=== PATIENT | female | born 1985 | race Asian ===

== ENCOUNTER 2017-04-27 13:14 | Inpatient (IN) | payer OTHER ==
[~2017-04-27] VITALS: Ht 152.4 cm; Wt 65.0 kg
[2017-04-27] VITALS (22 sets, daily range): BP systolic 96–123; BP diastolic 48–70; PULSE 60–88; RESP 10–27
[2017-04-27] MEDS ORDERED: SOD CHLORIDE 0.9% 1,000 ML IV ONE (14:00)
[2017-04-27] MEDS ORDERED: CEFAZOLIN 2 GM/50 ML (PMX) 50 ML IVPB ONE (14:00)
[2017-04-27] MEDS ORDERED: BUPIVACAINE 0.25% (MPF) 30 ML INJ ONE (16:54)
[2017-04-27] MEDS ORDERED: MIDAZOLAM 1 MG/ML 2 ML INJ ONE (17:00)
[2017-04-27] MEDS ORDERED: PROPOFOL 20 ML ONE (18:11)
[2017-04-27] MEDS ORDERED: GLYCOPYRROLATE 0.4 MG INJ ONE (18:11)
[2017-04-27] MEDS ORDERED: NEOSTIGMINE 3 MG/3 ML SYRINGE ONE (18:11)
[2017-04-27] MEDS ORDERED: LIDOCAINE 2% (SDV) 5 ML INJ ONE (18:11)
[2017-04-27] MEDS ORDERED: ROCURONIUM 50 MG INJ ONE (18:11)
[2017-04-27] MEDS ORDERED: ONDANSETRON 4 MG INJ ONE (18:12)
[2017-04-27] MEDS ORDERED: CEFAZOLIN 1 GM INJ ONE (18:13)
--- NOTE | 2017-04-27 18:17 | OPR ---
Date/Time of Note Date/Time of Note DATE: 04/27/17 TIME: 18:14 Operative Report Procedure Date: Apr 27, 2017 Preoperative Diagnosis symptomatic gallstones Postoperative Diagnosis same Operation Performed 1. laparoscopic cholecystectomy 2. therapeutic injection of subcutaneous marcaine Surgeon: Matilda NICHOLS Indications This is a 31-year-old female with subsided gallstones she required surgical excision. Risks alternatives benefits in personal discussed the patient. Patient's best understanding consents to the operation Procedure Description Patient is taken to the OR and prepped and draped in usual sterile fashion. Surgical timeout was performed. IV antibiotics given. Infraumbilical incision was made with a 15 blade. Dissection cautery was carried onto the fascia. The fascia was grasped with Eden's and divided with curved Romero scissors 0 Vicryl U stitch was placed to the fascia. Balloon Guerrero trocar is introduced pneumoperitoneum is established. Midepigastric 12 mm optical trocar right upper quadrant right flank 5 mm optical trocar placed under direct visualization. Upon initial inspection there are some adhesions to the gallbladder. These were taken down bluntly. The critical view was established. The gallbladder was held out in a outward lateral position. The cystic duct was identified 3 clips were placed proximally 1 clip distal and the cystic duct is divided the cystic artery was divided in a similar fashion. The cystic artery was divided with 3 clips proximal 1 clip distal. Gallbladder signal of the gallbladder bed there is good hemostasis. Gallbladder was retrieved using an Endo Catch bag. Ports removed under direct visualization. 0 Vicryl U stitch was tied down. Skin was closed using skin melquiades. Therapeutic injection of subcutaneous Marcaine was placed. Dry dressings were applied. Matilda NICHOLS Apr 27, 2017 18:17
[2017-04-27] MEDS: ONDANSETRON 4 MG INJ IV PRN ×2 (18:29→20:03)
[2017-04-27] MEDS ORDERED: MEPERIDINE 25 MG INJ IV PRN (18:30)
[2017-04-27] MEDS ORDERED: morphine (1 MG/ML) 10ML SYRINGE IV PRN (18:30)
[2017-04-27] MEDS ORDERED: HYDROCODONE/APAP (5/325) TAB PO ONE (18:30)
[2017-04-27] MEDS ORDERED: DIPHENHYDRAMINE 50 MG INJ IV PRN (18:30)
[2017-04-27] MEDS: FENTAnyl 50 MCG/ML VIAL IV PRN ×3 (18:42→19:41)
[2017-04-27] MEDS ORDERED: HYDROCODONE/APAP (5/325) TAB PO PRN (21:00)
[2017-04-27] MEDS: morphine 2 MG INJ IV PRN (22:49)
[2017-04-28 00:14] VITALS: BP 109/57; RESP 18
[2017-04-28] MEDS: morphine 2 MG INJ IV PRN ×2 (06:17→11:15)
[2017-04-28] MEDS: ONDANSETRON 4 MG INJ IV PRN ×2 (06:21→11:15)
[2017-04-28 08:00] VITALS: BP 109/64; RESP 18
--- NOTE | 2017-04-28 11:02 | CONS ---
Date/Time of Note Date/Time of Note DATE: 04/28/17 TIME: 11:01 Assessment/Plan Assessment/Plan Chief Complaint/Hosp Course Patient was admitted for continued pain after laparoscopic cholecystectomy. Patient continues to have a fair amount of pain. Will continue to monitor her postoperative course Problems: Consultation Date/Type/Reason Admit Date/Time Apr 27, 2017 at 20:55 Date of Consultation: Apr 28, 2017 Reason for Consultation Medical management after laparoscopic cholecystectomy Social History Smoking Status: Never smoker Exam/Review of Systems Vital Signs Vitals Vital Signs Date Time Temp Pulse Resp B/P Pulse Ox O2 Delivery O2 Flow Rate FiO2 04/28/17 08:00 98.5 64 18 109/64 97 04/27/17 20:35 Room Air 04/27/17 18:50 2.0 Intake and Output 04/27/17 04/27/17 04/28/17 15:00 23:00 07:00 Intake Total 1200 ml 560 ml Balance 1200 ml 560 ml Exam Constitutional: well developed Head: atraumatic, normocephalic Neck: supple Respiratory: clear to auscultation Cardiovascular: regular rate and rhythm Gastrointestinal: soft, tender Extremities: normal pulses Medications Medications Current Medications Acetaminophen/ Hydrocodone Bitart ([place] (5/325)) 1 tab Q4H PRN PO PAIN LEVEL 4 -6 Last administered on 04/28/17 02:03; Admin Dose 1 TAB; Start 04/27/17 at 21: 00 Morphine Sulfate (morphine) 2 mg Q4H PRN IV PAIN Last administered on 06:17; Admin Dose 2 MG; Start 04/27/17 at 22:30 Ondansetron HCl (Zofran Inj) 4 mg Q6H PRN IV NAUSEA AND/OR VOMITING Last administered on 04/28/17 06:21; Admin Dose 4 MG; Start 04/27/17 at 22:30 BARBARA SUH Apr 28, 2017 11:02
--- NOTE | 2017-04-28 14:25 | PN ---
Date/Time of Note Date/Time of Note DATE: 04/28/17 TIME: 14:16 Assessment/Plan VTE Prophylaxis VTE Prophylaxis Intervention: ambulation Lines/Catheters IV Catheter Type (from Nrs): Saline Lock Urinary Cath still in place: No Assessment/Plan Assessment/Plan 31-year-old female status post laparoscopic cholecystectomy postop day #1. Patient has been complaining of severe pain apparantly the pain is not under control. No patient is receiving morphine and [place]. We will start the patient on Toradol to control the pain. We will keep the patient overnight hopefully by tomorrow we can discharge the patient home. Subjective 24 Hr Interval Summary Free Text/Dictation April 28, 2017. Dr. Sims dictating progress note follow-up on the patient to edna Duncan. . Complaining of severe pain in the right upper quadrant at site of incision. This is supposedly so much that the patient hardly can move in the bed. Some nausea no vomiting no chills no fever no fainting. Exam/Review of Systems Vital Signs Vitals Vital Signs Date Time Temp Pulse Resp B/P Pulse Ox O2 Delivery O2 Flow Rate FiO2 04/28/17 08:00 98.5 64 18 109/64 97 04/27/17 20:35 Room Air 04/27/17 18:50 2.0 Intake and Output 04/27/17 04/27/17 04/28/17 15:00 23:00 07:00 Intake Total 1200 ml 560 ml Balance 1200 ml 560 ml Exam Postop day #1 laparoscopic cholecystectomy. . Patient is alert awake oriented 3. Her son is a stable blood pressure 110/ 64. Abdomen is soft there is mild tenderness over the right upper quadrant. Patient has been receiving morphine injection for control of the pain. But states that the pain is not controlled. Score of the pain is 8/10. Legs no calf tenderness. Medications Medications Current Medications Acetaminophen/ Hydrocodone Bitart ([place] (5/325)) 1 tab Q4H PRN PO PAIN LEVEL 4 -6 Last administered on 04/28/17 02:03; Admin Dose 1 TAB; Start 04/27/17 at 21: 00 Morphine Sulfate (morphine) 2 mg Q4H PRN IV PAIN Last administered on 11:15; Admin Dose 2 MG; Start 04/27/17 at 22:30 Ondansetron HCl (Zofran Inj) 4 mg Q6H PRN IV NAUSEA AND/OR VOMITING Last administered on 04/28/17t 11:15; Admin Dose 4 MG; Start 04/27/17 at 22:30 Ketorolac Tromethamine (Toradol) 30 mg Q6H IV ; Start 04/28/17 at 14:00; Stop at 13:59 LUKASZ SIMS MD Apr 28, 2017 14:25
[2017-04-28 14:43] LABS: BASOPHILS % 0.2 % (0.0-2.0); EOSINOPHILS # 0.1 10^3/ul (0.0-0.5); EOSINOPHILS % 1.1 % (0.0-7.0); HEMATOCRIT 35.2 % (37.0-47.0); HEMOGLOBIN 10.8 g/dl (12.0-16.0); LYMPHOCYTES # 1.7 10^3/ul (0.8-2.9); LYMPHOCYTES % 21.3 % (15.0-51.0); MEAN CORPUSCULAR HEMOGLOBIN 25.4 pg (29.0-33.0); MEAN CORPUSCULAR HGB CONC 30.7 g/dl (32.0-37.0); MEAN CORPUSCULAR VOLUME 82.6 fl (82.0-101.0); MONOCYTE # 0.7 10^3/ul (0.3-0.9); MONOCYTES % 8.9 % (0.0-11.0); NEUTROPHIL # 5.5 10^3/ul (1.6-7.5); NEUTROPHILS % 68.3 % (39.0-77.0); PLATELET COUNT 318 10^3/UL (140-415); RED BLOOD COUNT 4.26 10^6/ul (4.20-5.40); RED CELL DISTRIBUTION WIDTH 14.6 % (11.5-14.5); WHITE BLOOD COUNT 8.1 10^3/ul (4.8-10.8)
[2017-04-28] MEDS: KETOROLAC 30 MG INJ IV SCH ×2 (14:45→20:15)
[2017-04-28 15:21] LABS: ALBUMIN 3.8 g/dl (3.3-4.9); ALBUMIN/GLOBULIN RATIO 1.26; BILIRUBIN,INDIRECT 0.2 mg/dl (0-1.1); BILIRUBIN,TOTAL 0.2 mg/dl (0.2-1.3); CALCIUM 8.4 mg/dl (8.4-10.2); CREATININE 0.62 mg/dl (0.44-1.00); POTASSIUM 3.9 mmol/L (3.5-5.1); TOTAL PROTEIN 6.8 g/dl (6.1-8.1)
[2017-04-28 19:10] VITALS: BP 108/57; RESP 18
[2017-04-29 02:00] VITALS: BP 111/55; RESP 18
[2017-04-29] MEDS: KETOROLAC 30 MG INJ IV SCH ×3 (02:05→14:32)
[2017-04-29 04:57] LABS: BASOPHILS % 0.3 % (0.0-2.0); EOSINOPHILS # 0.2 10^3/ul (0.0-0.5); EOSINOPHILS % 2.5 % (0.0-7.0); HEMATOCRIT 32.6 % (37.0-47.0); HEMOGLOBIN 10.4 g/dl (12.0-16.0); LYMPHOCYTES % 27.2 % (15.0-51.0); MEAN CORPUSCULAR HEMOGLOBIN 26.3 pg (29.0-33.0); MEAN CORPUSCULAR HGB CONC 31.9 g/dl (32.0-37.0); MEAN CORPUSCULAR VOLUME 82.5 fl (82.0-101.0); MEAN PLATELET VOLUME 9.9 fl (7.4-10.4); MONOCYTE # 0.7 10^3/ul (0.3-0.9); MONOCYTES % 8.9 % (0.0-11.0); NEUTROPHIL # 4.4 10^3/ul (1.6-7.5); PLATELET COUNT 283 10^3/UL (140-415); RED BLOOD COUNT 3.95 10^6/ul (4.20-5.40); RED CELL DISTRIBUTION WIDTH 14.5 % (11.5-14.5); WHITE BLOOD COUNT 7.3 10^3/ul (4.8-10.8)
[2017-04-29 05:22] LABS: CALCIUM 8.2 mg/dl (8.4-10.2); CREATININE 0.66 mg/dl (0.44-1.00); POTASSIUM 3.8 mmol/L (3.5-5.1)
[2017-04-29 08:07] VITALS: BP 113/55; RESP 18
--- NOTE | 2017-04-29 12:10 | DS ---
Date/Time of Note Date/Time of Note DATE: 04/29/17 TIME: 12:08 Discharge Summary Admission/Discharge Info Admit Date/Time Apr 28, 2017 at 11:34 Discharge Date/Time 04/29/17 Patient Condition: Fair Procedures laparoscopic cholecystectomy Hx of Present Illness Patient comes in with cholelithiasis. Patient admitted for elective laparoscopic cholecystectomy Hospital Course Patient was admitted for continued pain after laparoscopic cholecystectomy. Patient continues to have a fair amount of pain. Will continue to monitor her postoperative course. Once stable, patient will be sent home on oral pain medication Home Meds No Active Prescriptions or Reported Meds Primary Care Provider Not On Staff Doctor Pending Labs Laboratory Tests Test 04/28/17 14:12 04/29/17 04:30 White Blood Count 8.110^3/ul (4.8-10.8) 7.310^3/ul (4.8-10.8) Red Blood Count 4.2610^6/ul (4.20-5.40) 3.9510^6/ul (4.20-5.40) Hemoglobin 10.8g/dl (12.0-16.0) 10.4g/dl (12.0-16.0) Hematocrit 35.2% (37.0-47.0) 32.6% (37.0-47.0) Mean Corpuscular Volume 82.6fl (82.0-101.0) 82.5fl (82.0-101.0) Mean Corpuscular Hemoglobin 25.4pg (29.0-33.0) 26.3pg (29.0-33.0) Mean Corpuscular Hemoglobin Concent 30.7g/dl (32.0-37.0) 31.9g/dl (32.0-37.0) Red Cell Distribution Width 14.6% (11.5-14.5) 14.5% (11.5-14.5) Platelet Count 08039^3/UL (140-415) 26703^3/UL (140-415) Mean Platelet Volume 10.0fl (7.4-10.4) 9.9fl (7.4-10.4) Neutrophils % 68.3% (39.0-77.0) 61.0% (39.0-77.0) Lymphocytes % 21.3% (15.0-51.0) 27.2% (15.0-51.0) Monocytes % 8.9% (0.0-11.0) 8.9% (0.0-11.0) Eosinophils % 1.1% (0.0-7.0) 2.5% (0.0-7.0) Basophils % 0.2% (0.0-2.0) 0.3% (0.0-2.0) Nucleated Red Blood Cells % 0.0/100WBC (0.0-0.0) 0.0/100WBC (0.0-0.0) Neutrophils # 5.510^3/ul (1.6-7.5) 4.410^3/ul (1.6-7.5) Lymphocytes # 1.710^3/ul (0.8-2.9) 2.010^3/ul (0.8-2.9) Monocytes # 0.710^3/ul (0.3-0.9) 0.710^3/ul (0.3-0.9) Eosinophils # 0.110^3/ul (0.0-0.5) 0.210^3/ul (0.0-0.5) Basophils # 0.010^3/ul (0.0-0.1) 0.010^3/ul (0.0-0.1) Nucleated Red Blood Cells # 0.010^3/ul (0.0-0.0) 0.010^3/ul (0.0-0.0) Sodium Level 138mmol/L (135-144) 142mmol/L (135-144) Potassium Level 3.9mmol/L (3.5-5.1) 3.8mmol/L (3.5-5.1) Chloride Level 101mmol/L (97-110) 106mmol/L (97-110) Carbon Dioxide Level 25mmol/L (21-31) 25mmol/L (21-31) Anion Gap 16 (8-16) 15 (8-16) Blood Urea Nitrogen 7mg/dl (7-20) 6mg/dl (7-20) Creatinine 0.62mg/dl (0.44-1.00) 0.66mg/dl (0.44-1.00) Glucose Level 99mg/dl (70-220) 93mg/dl (70-220) Calcium Level 8.4mg/dl (8.4-10.2) 8.2mg/dl (8.4-10.2) Total Bilirubin 0.2mg/dl (0.2-1.3) Direct Bilirubin 0.00mg/dl (0.00-0.20) Indirect Bilirubin 0.2mg/dl (0-1.1) Aspartate Amino Transf (AST/SGOT) 58IU/L (15-46) Alanine Aminotransferase (ALT/SGPT) 93IU/L (13-69) Alkaline Phosphatase 107IU/L (42-121) Total Protein 6.8g/dl (6.1-8.1) Albumin 3.8g/dl (3.3-4.9) Globulin 3.00g/dl (1.3-3.2) Albumin/Globulin Ratio 1.26 BARBARA SUH Apr 29, 2017 12:10
--- NOTE | 2017-04-29 14:40 | PN ---
Date/Time of Note Date/Time of Note DATE: 04/29/17 TIME: 14:36 Assessment/Plan VTE Prophylaxis VTE Prophylaxis Intervention: ambulation Lines/Catheters [facility] Saline Lock Urinary Cath still in place: No Assessment/Plan Assessment/Plan April 29, 2017. Status post laparoscopy cholecystectomy. 31-year-old female who had a laparoscopic cholecystectomy 2 days ago yesterday patient was in so much pain she could not tolerate getting out of bed. But today patient was in better shape and has tolerated out of bed walking around, pain is under control. Vital sign is stable. Therefore patient can be discharged home today to be followed by Dr. Goldstein in his office. Subjective 24 Hr Interval Summary Free Text/Dictation Feels much better. Has tolerated food. Bed and walking around. Pain is under control. Exam/Review of Systems Vital Signs Vitals Vital Signs Date Time Temp Pulse Resp B/P Pulse Ox O2 Delivery O2 Flow Rate FiO2 04/29/17 08:07 97.9 73 18 113/55 99 04/27/17 20:35 Room Air 04/27/17 18:50 2.0 Intake and Output 04/28/17 04/28/17 04/29/17 15:00 23:00 07:00 Intake Total 480 ml 440 ml Balance 480 ml 440 ml Exam Postop day #2. Awake alert oriented sitting in the chair out of bed. Vital signs are stable afebrile. No nausea no vomiting. Abdomen is soft bowel sounds present. Dressings are intact. Results Result Diagram: 04/29/17 0430 04/29/17 0430 Results 24 hrs Laboratory Tests Test 04/29/17 04:30 White Blood Count 7.3 Red Blood Count 3.95 L Hemoglobin 10.4 L Hematocrit 32.6 L Mean Corpuscular Volume 82.5 Mean Corpuscular Hemoglobin 26.3 L Mean Corpuscular Hemoglobin Concent 31.9 L Red Cell Distribution Width 14.5 Platelet Count 283 Mean Platelet Volume 9.9 Neutrophils % 61.0 Lymphocytes % 27.2 Monocytes % 8.9 Eosinophils % 2.5 Basophils % 0.3 Nucleated Red Blood Cells % 0.0 Neutrophils # 4.4 Lymphocytes # 2.0 Monocytes # 0.7 Eosinophils # 0.2 Basophils # 0.0 Nucleated Red Blood Cells # 0.0 Sodium Level 142 Potassium Level 3.8 Chloride Level 106 Carbon Dioxide Level 25 Anion Gap 15 Blood Urea Nitrogen 6 L Creatinine 0.66 Glucose Level 93 Calcium Level 8.2 L Medications Medications Current Medications Acetaminophen/ Hydrocodone Bitart ([place] (5/325)) 1 tab Q4H PRN PO PAIN LEVEL 4 -6 Last administered on 04/28/17 02:03; Admin Dose 1 TAB; Start 04/27/17 at 21: 00 Morphine Sulfate (morphine) 2 mg Q4H PRN IV PAIN Last administered on 11:15; Admin Dose 2 MG; Start 04/27/17 at 22:30 Ondansetron HCl (Zofran Inj) 4 mg Q6H PRN IV NAUSEA AND/OR VOMITING Last administered on 04/28/17 11:15; Admin Dose 4 MG; Start 04/27/17 at 22:30 Ketorolac Tromethamine (Toradol) 30 mg Q6H IV Last administered on 04/29/17 14 :32; Admin Dose 30 MG; Start 04/28/17 at 14:00; Stop 05/01/17 at 13:59 LUKASZ SIMS MD Apr 29, 2017 14:40
== END 2017-04-29 15:25 | disposition home or self-care (01) | DRG 941 ==
LOC: SDS 13:14 → MS1 20:55 → SDS 21:08 → MS1 21:12 → UNDOADMIN 21:12 → OBSVTOIN 04-28 11:34
PROVIDERS: ADMIT Surgery; ATTEND Surgery
PROC: 0FT44ZZ Resection of Gallbladder, Percutaneous Endoscopic Approach (ICD-10-PCS; principal; 2017-04-27 15:30)
DX: G89.18 Other acute postprocedural pain (principal); K80.20 Calculus of gallbladder without cholecystitis without obstruction
CPT/HCPCS: 80048; 80053; 85025; 88304; G0378; J0690; J1885; J2175; J2250; J2270; J2405; J2710; J3010

== ENCOUNTER 2017-05-08 20:04 | Emergency (ER) | payer SELFPAY ==
[~2017-05-08] VITALS: Ht 160 cm; Wt 65.0 kg
[2017-05-08 20:08] VITALS: Ht 160 cm; Wt 65.0 kg
[2017-05-08 21:48] VITALS: BP 111/69; PULSE 72; RESP 18; TEMP 98.2
--- NOTE | 2017-05-08 21:58 | ERD ---
ER Documentation Chief Complaint Date/Time DATE: 05/08/17 TIME: 21:54 Chief Complaint wound check on post op cholecystectomy wound 2 wks ago, denies abd pain HPI 31 year old female presents to the emergency department status post cholecystectomy on April [address]Bae Kelly. Patient states that she had her melquiades removed with the physician earlier today and she has noticed that the lower incision has opened a little bit. Patient states that the pain is minimal , she denies any discharge. Denies any fevers ROS All systems reviewed and are negative except as per history of present illness. Medications Home Meds No Active Prescriptions or Reported Meds Allergies Allergies: Coded Allergies: erythromycin base (Verified Allergy, Unknown, 04/27/17) PMhx/Soc History of Surgery: Yes (cholecystectomy) Anesthesia Reaction: No Hx Neurological Disorder: No Hx Respiratory Disorders: No Hx Cardiac Disorders: No Hx Psychiatric Problems: No Hx Miscellaneous Medical Probl: No Hx Alcohol Use: Yes (SOMETIMES) Hx Substance Use: No Hx Tobacco Use: No Smoking Status: Never smoker Physical Exam Vitals Vital Signs Date Time Temp Pulse Resp B/P Pulse Ox O2 Delivery O2 Flow Rate FiO2 05/08/17 21:48 98.2 72 18 111/69 100 Room Air 05/08/17 20:08 98.0 72 20 128/60 100 Physical Exam Const: Well-developed well-nourished no acute distress Head: Atraumatic Eyes: Normal Conjunctiva ENT: Normal External Ears, Nose and Mouth. Neck: Full range of motion..~ No meningismus. Resp: Clear to auscultation bilaterally Cardio: Regular rate and rhythm, no murmurs Abd: Soft, non tender, non distended. Normal bowel sounds Skin: 3 upper incisions, healing appropriately Incision inferior to the bellybutton has mild dehiscence with no evidence of purulence or seroma Back: No midline or flank tenderness Ext: No cyanosis, or edema Neur: Awake and alert Psych: Normal Mood and Affect Procedures/MDM 31-year-old female presents status post cholecystectomy on April [address]Bae Kelly, patient had staple removal done earlier today with the surgeon and noted dehiscence of the wound at one the incision site. There was no evidence of cellulitis, seroma. In the ED I have applied benzoin tincture and applied Steri -Strips. Patient stable to be discharged home, I have given her strict precautions to return to the emergency department for any worsening sensitive. She understands and agrees with plan Departure Diagnosis: Primary Impression: Encounter for postoperative wound check Condition: Stable Patient Instructions: Post Op Wound Check, General, Post Op Wound Check, Bleeding Additional Instructions: FOLLOW UP WITH YOUR PRIMARY CARE PHYSICIAN TOMORROW.Return to this facility if you are not improving as expected. Return to this facility if you are not improving as expected. TRISTON THAPA PA-C May 08, 2017 21:58
== END 2017-05-08 21:48 | disposition home or self-care (01) ==
LOC: FTE 20:04
DX: Z48.01 Encounter for change or removal of surgical wound dressing (principal)
CPT/HCPCS: 99281